=== PATIENT | female | born 1995 | race Caucasian/White ===

== ENCOUNTER 2017-03-21 17:36 | Emergency (ER) | payer OTHER ==
[2017-03-21 17:42] VITALS: BP 117/71; PULSE 63; TEMP 98.4; BMI 22.6
--- NOTE | 2017-03-21 18:49 | PDOC ---
History of Present Illness - General Chief Complaint: Injury Stated Complaint: RIGHT FINGER INJURY Time Seen by Provider: 03/21/17 18:38 History Source: Patient Exam Limitations: No Limitations - History of Present Illness Initial Comments: 03/21/17 18:48 Chief complaint: right middle finger laceration History of Present Illness: Pt. is a 22-year-old female with a history of eczema here today after cutting her right middle finger on the piece of broken mirror 3 days ago. She reports that wound edges are not staying together. 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 She denies any pain or numbness of her finger. Patient is up-to-date with tetanus. 03/21/17 19:11 03/21/17 19:15 03/21/17 19:15 03/21/17 19:16 Occurred: reports: just prior to arrival Severity: reports: mild Pain Location: reports: upper extremity (rt. dorsal middle finger laceration ) Method of Injury: Yes: direct blow (by a mirror) Modifying Factors: improves with: None Loss of Consciousness: no loss of consciousness Associated Symptoms (Fall): denies symptoms Past History - Past Medical History Allergies/Adverse Reactions: Allergies Allergy/AdvReac Type Severity Reaction Status Date / Time No Known Allergies Allergy Verified 03/21/17 17:43 Home Medications: Ambulatory Orders No Home Medications 0 dose .ROUTE UTDICT 01/18/13 Cyclobenzaprine HCl [Flexeril] 5 mg PO HS PRN #5 tablet 08/22/13 Naproxen [Naprosyn] 500 mg PO BID #20 tablet 08/22/13 Thyroid Disease: No - Immunization History Immunization Up to Date: No - Psycho/Social/Smoking Cessation Hx Anxiety: No Suicidal Ideation: No Smoking Status: No Smoking History: Never smoked Have you smoked in the past 12 months: No Number of Cigarettes Smoked Daily: 0 Information on smoking cessation initiated: No Hx Alcohol Use: No Substance Use Type: None Review of Systems - Review of Systems Able to Perform ROS?: Yes Constitutional: No: Symptoms Reported HEENTM: No: Symptoms Reported Respiratory: No: Symptoms reported Cardiac (ROS): No: Symptoms Reported ABD/GI: No: Symptoms Reported : No: Symptoms Reported Musculoskeletal: No: Symptoms Reported Integumentary: Yes: Other (laceration rt. dorsal middle finger ) Neurological: No: Symptoms reported *Physical Exam - Vital Signs Last Vital Signs Temp Pulse Resp BP Pulse Ox 98.4 F 63 18 117/71 100 03/21/17 17:39 03/21/17 17:39 03/21/17 17:39 03/21/17 17:39 03/21/17 17:39 - Physical Exam General Appearance: Yes: Appropriately Dressed Comments:: 03/21/17 18:46 radial pulse rt. 4 + Extremity: positive: Normal Capillary Refill, Normal Range of Motion (rt. middle finger at pip, dip and mcp jt). negative: Normal Inspection Integumentary: positive: Other (flap laceration superfical rt. middle finger dorsal proximal phalanx wound edges not well approximated proximally ) Neurologic: positive: Normal Response, Respond to painful stimul (rt. middle finger ), Responsive. negative: Numbness, Sensory Deficit (rt. middle finger') Procedures - Consent Consent obtained: From Patient - Laceration/Wound Repair Right Proximal Dorsal Finger 3rd digit Wound Length: 2.6 to 5.0 cm Wound Explored: clean Wound's Depth, Shape: superficial, irregular Irrigated w/ Saline: Yes Betadine Prep: Yes Wound Repaired With: Steri-strips Splint Applied: Yes (rt. middle finger) Medical Decision Making - Medical Decision Making 03/21/17 19:15 03/21/17 19:16 03/21/17 19:16 Pt. is a 22-year-old female with a history of eczema here today after cutting her right middle finger on the piece of broken mirror 3 days ago. She reports that wound edges are not staying together. 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 She denies any pain or numbness of her finger. Patient is up-to -date with tetanus. Flap laceration right hand middle finger 3 days old no foreign body noted PLAN: xray right middle finger no fracture or foreign body noted Middle finger cleansed with Betadine and normal saline 0.9% wound edges approximated as well as possible applied tincture of benzoin around wound and Steri-Stripped finger DSD than splint applied 03/21/17 19:20 03/21/17 19:21 *DC/Admit/Observation/Transfer Diagnosis at time of Disposition: Laceration of middle finger Qualifiers: Encounter type: initial encounter Damage to nail status: without damage Foreign body presence: without foreign body Laterality: right Qualified Code(s) : S61.212A - Laceration without foreign body of right middle finger without damage to nail, initial encounter - Discharge Dispostion Disposition: HOME Condition at time of disposition: Stable - Patient Instructions Additional Instructions: Keep Wound dry for 2 days may wet Steri-Strip well and remove the Steri-Strip cleanse with antibacterial soap and water and apply a tiny amount of bacitracin ointment twice daily may continue to wear splint until heals Follow Up with primary care provider within the next few days Return to emergency room if any redness around wound or discharge from wound or any fever Patient voiced understanding of discharge instructions and all questions were answered
[2017-03-21] MEDS ORDERED: DIPHTH,PERTUSS(ACELL),TET 0.5 ML DISP.SYRIN IM ONE (19:11)
== END 2017-03-21 19:28 | disposition home or self-care (01) ==
LOC: JERFT 17:36
PROC: 0HQFXZZ Repair Right Hand Skin, External Approach (ICD-10-PCS; principal; 2017-03-21)
PROC: 3E0234Z Introduction of Serum, Toxoid and Vaccine into Muscle, Percutaneous Approach (ICD-10-PCS; 2017-03-21)
DX: S61.212A Laceration without foreign body of right middle finger without damage to nail, initial encounter (principal); W25.XXXA Contact with sharp glass, initial encounter; Y93.89 Activity, other specified; Y92.89 Other specified places as the place of occurrence of the external cause
CPT/HCPCS: 12001-25; 73140-TC-RT; 90471; 90715; 99281-25

== ENCOUNTER 2023-04-02 20:23 | Emergency (ER) | payer OTHER ==
[2023-04-02 20:34] VITALS: BP 115/85; PULSE 100; RESP 18; TEMP 98.4; BMI 27.4
[2023-04-02] MEDS ORDERED: predniSONE 20 MG TABLET (UD) PO ONE (21:36)
[2023-04-02] MEDS ORDERED: ACETAMINOPHEN 500 MG TABLET (FP) PO ONE (21:36)
[2023-04-02] MEDS ORDERED: hydrOXYzine PAMOATE 25 MG CAPSULE (FP) PO ONE ×2 (21:36→21:45)
[2023-04-02] MEDS ORDERED: predniSONE 20 MG TABLET (UD) ONE (21:46)
[2023-04-02] MEDS ORDERED: ACETAMINOPHEN 500 MG TABLET (FP) ONE (21:46)
== END 2023-04-02 22:04 | disposition home or self-care (01) ==
LOC: JERFT 20:23 → JER 20:23 → JERFT 22:04
DX: L30.9 Dermatitis, unspecified (principal)
CPT/HCPCS: 99283-25